=== PATIENT | male | born 1985 | race Caucasian/White ===

== ENCOUNTER 2021-12-05 03:59 | Emergency (ER) | payer MEDICAID, SELFPAY ==
[2021-12-05 04:00] VITALS: BP 158/87; PULSE 84; RESP 16; TEMP 36.6; O2SAT 97; BMI 44.9
--- NOTE | 2021-12-05 04:29 | RAD_ITS ---
EXAM: XR SOFT TISSUE NECK CLINICAL INDICATION: pain TECHNIQUE: Frontal and lateral views of the soft tissues of the neck. This report was created using [employer] report generation technology. COMPARISON: None. FINDINGS: LIMITATIONS: Mild rotation of the mandible on the lateral view. AIRWAY: See below. BONES/JOINTS: There is mild reversal of the usual lordotic curvature of the cervical spine. Minimal anterior spondylosis at C4-C5. SOFT TISSUES: Unremarkable epiglottis and hypopharynx. No significant retropharyngeal thickening. No radiopaque foreign body. RAD/Neck for Soft Tissue IMPRESSION: No acute findings in the neck. Minimal degenerative spine changes and mild reversal of the usual lordotic curvature. Electronically Signed: Shirley Louise MD at 5:07 EDT ,
[2021-12-05] MEDS: dexAMETHasone 10 MG/ML Vial PO.IVFORM (05:01)
--- NOTE | 2021-12-05 05:26 | EDS_ITS ---
HPI History of Present Illness Chief Complaint: Sore Throat Narrative Narrative: Patient is a 36-year-old male with history of hypertension which is untreated. He states that starting yesterday he noticed a sore throat that then seemed to improve throughout the day. He states that he was able to go to sleep but then awoke early in the morning and had a brief coughing spell and following this developed increased throat pain. He states he feels like it is numb and slightly constricted and secondary to this presents for evaluation [facility] Medical History no medical history Home Medications prednisone 40 mg PO DAILY 5 Days #10 tab 12/05/21 [Rx Last Taken Unknown] sulfamethoxazole-trimethoprim [Bactrim DS] 1 tab PO BID #20 tab 12/05/21 [Rx Last Taken Unknown] Allergy/AdvReac Type Severity Reaction Status Date / Time bee pollen Allergy Anaphylaxis Verified 12/05/21 04:03 piña Allergy Anaphylaxis Verified 12/05/21 04:03 CILLINS Allergy Swelling Uncoded 12/05/21 04:03 Social History Smoking Status: Former smoker ROS [facility] ED Constitutional Constitutional ED: Denies chills or fever(s) ENT ENT ED: Reports sore throat; Denies rhinorrhea Cardiovascular Cardiovascular: Denies chest pain Respiratory/Chest Respiratory/Chest: Reports cough; Denies dyspnea Gastrointestinal Gastrointestinal: Denies abdominal pain, diarrhea, nausea or vomiting Genitourinary Genitourinary ED: Denies dysuria Musculoskeletal Musculoskeletal: Reports neck pain; Denies myalgias Integumentary Denies rash Neurologic Neurologic: Denies headache(s) Hematologic/Lymphatic Hematologic/Lymphatic: Denies easy bleeding or easy bruising EXAM Physical Exam Const Vital Signs: 12/05/21 04:00 Temperature 98 F Temperature Source Oral Pulse Rate 84 Respiratory Rate 16 Blood Pressure 158/87 H Blood Pressure Mean 110 Pulse Ox 97 Oxygen Delivery Method Room Air Positive well nourished, well developed and obese General Appearance ED: well developed Nutritional Appearance: obese HEENT Reports moist mucous membranes HEENT Narrative: There is cobblestoning the posterior pharynx consistent with sinus drainage. No tonsillar hypertrophy noted. There is 1 faint hard palate petechiae noted. No exudates no trismus no change in voice or difficulty with secretions Eyes PERRL and EOMs intact bilaterally Neck supple Neck Narrative: Positive anterior cervical lymphadenopathy but no crepitance palpated and no pain with external manipulation of the thyroid cartilage Resp normal respiratory effort and clear to auscultation bilaterally Cardio regular rate and regular rhythm Extremity normal to inspection Neuro oriented x3 and CN's II-XII intact bilaterally Sensorium / Orientation: alert Motor Exam: strength 5/5 throughout Psych mental status grossly normal Skin no rashes or lesions noted MDM MDM MDM Narrative Medical decision making narrative: Patient presented to the ER slightly hypertensive which he states is normal for him but otherwise afebrile. He had no signs of respiratory distress and therefore I felt no need for work-up other than strep swab and soft tissue neck x-ray because of his report of constriction and pain following a coughing event. X-ray revealed no acute findings and strep swab was positive despite his physical exam not suggesting this. At this time he has no signs of systemic infection there is no obvious peritonsillar abscess present and therefore he can be given symptomatic treatment and discharged home Radiography Diagnostic Testing: Clinical Impression(s) from Imaging Studies Soft Tissue Neck X-Ray 12/05/21 04:29 IMPRESSION: No acute findings in the neck. Minimal degenerative spine changes and mild reversal of the usual lordotic curvature. Electronically Signed: Shirley Louise MD at 5:07 EDT , X-ray of the soft tissue neck as interpreted by the emergency medicine physician reveals no free air no foreign body or soft tissue edema Discharge Plan Triage Chief Complaint: Sore Throat ED Provider: Enrique Cunningham Dx/Rx/DC Orders Clinical Impression: Strep throat Instructions: ED Pharyngitis, Strep (Confirmed) Prescriptions: New sulfamethoxazole-trimethoprim [Bactrim DS] 800-160 mg tablet 1 tab PO BID Qty: 20 RF: 0 prednisone 20 mg tablet 40 mg PO DAILY 5 Days Qty: 10 RF: 0 Stand Alone Forms: ED Work / School Excuse Primary Care Provider: Care Physician,No Primary Referrals: Gina Guerrero MD [STAFF PHYSICIAN] - 1 Week if not improving Care Physician,No Primary [Primary Care Provider] - Disposition Disposition: Home, Self Care
[2021-12-05] MEDS: Smz/Tmp Ds Tablet 1 TABLET PO (05:34)
[2021-12-05 05:37] VITALS: BP 124/69; PULSE 74; RESP 15; O2SAT 98
== END 2021-12-05 05:37 | disposition home or self-care (01) ==
PROVIDERS: Emergency Provider Emergency Medicine; Visit Provider Emergency Medicine
DX: J02.0 Streptococcal pharyngitis (principal); I10 Essential (primary) hypertension; E66.9 Obesity, unspecified; Z87.891 Personal history of nicotine dependence
CPT/HCPCS: 70360; 87880; 99283

== ENCOUNTER 2021-12-07 05:49 | Emergency (ER) | payer MEDICAID, SELFPAY ==
[2021-12-07 05:51] VITALS: BP 158/78; PULSE 104; RESP 18; TEMP 38.7; O2SAT 95; BMI 44.6
--- NOTE | 2021-12-07 06:09 | EX.ED.DYSGE1 ---
HPI History of Present Illness Chief Complaint: Syncope Narrative Narrative: 36-year-old male diagnosed with strep pharyngitis on 05 December presenting with sore throat, mild cough with blood tingeing in his sputum. He states he feels generally unwell. He felt a little bit lightheaded today and nearly fainted. He did not hit his head. Patient states he has no medical problems. He is unsure how he was exposed to strep. He does not have children. 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 Nobody also sick. Patient is not having chest pain or shortness of breath. No reported fevers at home. PFSH PFSH Medical History no medical history Home Medications clindamycin HCl 300 mg PO TID 10 Days #60 cap 12/07/21 [Rx Last Taken Unknown] sertraline 100 mg PO DAILY 12/07/21 [History Last Taken Unknown] Allergy/AdvReac Type Severity Reaction Status Date / Time bee pollen Allergy Anaphylaxis Verified 12/07/21 05:50 piña Allergy Anaphylaxis Verified 12/07/21 05:50 CILLINS Allergy Swelling Uncoded 12/07/21 05:50 Social History Smoking Status: Former smoker ROS ROS ED Constitutional Constitutional ED: Reports chills Eyes Eyes: Denies blurry vision or diplopia ENT ENT ED: Reports sore throat; Denies rhinorrhea Cardiovascular Cardiovascular: Denies chest pain or palpitations Respiratory/Chest Respiratory/Chest: Reports cough; Denies dyspnea or dyspnea on exertion Gastrointestinal Gastrointestinal: Denies abdominal pain, nausea or vomiting Genitourinary Genitourinary ED: Denies dysuria or hematuria Musculoskeletal Musculoskeletal: Reports myalgias; Denies arthralgias or neck pain Integumentary Denies rash Neurologic Neurologic: Reports headache(s); Denies paresthesias or weakness Psychiatric Psychiatric: Denies anxiety or depression EXAM Physical Exam Const Vital Signs: 12/07/21 05:51 Temperature 101.7 F H Temperature Source Temporal Pulse Rate 104 H Respiratory Rate 18 Blood Pressure 158/78 H Blood Pressure Mean 104 Pulse Ox 95 Oxygen Delivery Method Room Air Positive well nourished General Appearance ED: NAD; Negative for pallor HEENT Reports moist mucous membranes Negative for trauma Mouth ED: Yes oral and palatal mucosa normal, Yes lips normal, Yes tongue normal, Yes salivary gland normal and Yes moist mucous membranes normal Mouth: oral and palatal mucosa normal, lips normal, tongue normal and salivary gland normal Teeth and Gingiva: Negative for abnormal tooth and associated gingiva Throat: tonsils abnormal bilateral and posterior oropharynx abnormal Positive for edema and erythema; Negative for exudates and foreign body Eyes PERRL and EOMs intact bilaterally Neck no lymphadenopathy and supple Resp normal respiratory effort and clear to auscultation bilaterally Neuro oriented x3, CN's II-XII intact bilaterally and no sensory deficits noted Sensorium / Orientation: alert Motor Exam: strength 5/5 throughout Psych mental status grossly normal Skin no rashes or lesions noted General Skin Exam: Negative for jaundice or pallor MDM MDM MDM Narrative Medical decision making narrative: Patient states he was diagnosed with strep pharyngitis on the 28. He states he was given prednisone. He did not receive a prescription for antibiotics. I reviewed the medical record and see that he was ordered Bactrim but for some reason it did not transmit. Patient has a penicillin allergy. He states he has severe reaction to penicillin and therefore I would not start a cephalosporin. He states he has tolerated clindamycin in the past. He does present with a fever of 101.7 today. Since he has strep throat I do not believe he needs further testing. Given his symptoms this is likely due to fever and strep. Patient will be given ibuprofen 600 mg in the ED and given his first dose of clindamycin in the ED. Prescriptions were sent to [facility]. Patient discharged home in stable condition. Impression: 1. Strep pharyngitis Lab Data Attestation: I reviewed the patient's lab results. Discharge Plan Triage Chief Complaint: Syncope ED Provider: Dixon James Dx/Rx/DC Orders Instructions: ED Pharyngitis, Strep (Confirmed) Prescriptions: New clindamycin HCl 150 mg capsule 300 mg PO TID 10 Days Qty: 60 RF: 0 No Action sertraline 100 mg Tablet 100 mg PO DAILY RF: 0 Primary Care Provider: Care Physician,No Primary Referrals: Carlee Bender MD [STAFF PHYSICIAN] - As Needed Care Physician,No Primary [Primary Care Provider] - Disposition Disposition: Home, Self Care
[2021-12-07] MEDS: Ibuprofen 600 MG Tablet PO (06:10)
[2021-12-07] MEDS: Clindamycin HCl 150 MG Capsule 300 MG PO (06:10)
[2021-12-07 06:14] VITALS: BP 142/61; PULSE 109; RESP 18; O2SAT 95
== END 2021-12-07 06:19 | disposition home or self-care (01) ==
PROVIDERS: Emergency Provider Student in an Organized Health Care Education/Training Program; Visit Provider Student in an Organized Health Care Education/Training Program
DX: R55 Syncope and collapse (principal); J02.0 Streptococcal pharyngitis; R04.2 Hemoptysis; Z79.899 Other long term (current) drug therapy; Z87.891 Personal history of nicotine dependence
CPT/HCPCS: 99283